=== PATIENT | male | born 1975 | race Caucasian/White ===

== ENCOUNTER 2023-04-02 14:06 | Inpatient (IN) | payer MEDICAID ==
[~2023-04-02] VITALS: Ht 172.7 cm; Wt 106.1 kg
[2023-04-02 14:10] VITALS: BP 103/69; PULSE 98; RESP 22; TEMP 97.4
[2023-04-02] MEDS ORDERED: ONDANSETRON 4 MG/2 ML VIAL IVP ONE (14:25)
[2023-04-02] MEDS ORDERED: NACL 0.9% 1,000 ML IV ONE ×3 (14:25→18:45)
[2023-04-02 14:30] VITALS: O2SAT 98
[2023-04-02 14:45] LABS: BASOPHILS # (AUTO) 0.1 K/uL (0.00-0.22); BASOPHILS % (AUTO) 0.7 % (0.0-2.0); EOSINOPHILS # (AUTO) 0.1 K/uL (0-0.4); EOSINOPHILS % (AUTO) 0.7 % (0.0-4.0); HEMATOCRIT 42.2 % (36-52); HEMOGLOBIN 14.8 g/dL (12.0-18.0); LYMPHOCYTES # (AUTO) 3.9 K/uL (2.0-11.5); LYMPHOCYTES % (AUTO) 39.8 % (20.5-51.1); MEAN CORPUSCULAR HEMOGLOBIN 30 pg (27-31); MEAN CORPUSCULAR HGB CONC 35 g/dL (33-37); MEAN CORPUSCULAR VOLUME 85.2 fL (80-94); MONOCYTES # (AUTO) 0.6 K/uL (0.8-1.0); MONOCYTES % (AUTO) 6.5 % (1.7-9.3); NEUTROPHILS # (AUTO) 5.1 K/uL (1.8-7.7); NEUTROPHILS % (AUTO) 52.3 % (42.2-75.2); PLATELET COUNT (AUTO) 299 K/uL (140-450); RED BLOOD CELL COUNT(AUTO) 4.95 MIL/uL (4.20-6.10); RED CELL DISTRIBUTION WIDTH 14.1 % (11.6-13.7); WHITE BLOOD COUNT (AUTO) 9.9 K/uL (4.8-10.8)
[2023-04-02 15:11] LABS: ALBUMIN 3.9 g/dL (3.4-5.0); ANION GAP 18.8 (8-16); CALCIUM 8.1 mg/dL (8.5-10.1); CARBON DIOXIDE 19.4 mmol/L (21-32); CREATININE 1.1 mg/dL (0.6-1.3); POTASSIUM 3.2 mmol/L (3.5-5.1); TOTAL BILIRUBIN 0.8 mg/dL (0.0-1.0); TOTAL PROTEIN, SERUM 6.9 g/dL (6.4-8.2)
[2023-04-02 15:12] LABS: ACETONE, SERUM NEGATIVE (NEGATIVE)
[2023-04-02 15:25] LABS: ALCOHOL, BLOOD < 3 mg/dL (<10); SALICYLATE < 2.8 mg/dL (2.8-20.0)
[2023-04-02] MEDS ORDERED: INSULIN REGULAR, HUMAN 100 UNIT/ML VIAL IVP ONE (15:50)
[2023-04-02] MEDS ORDERED: KCL 20 MEQ IN 100 mL PREMIX 200 ML IV ONE (15:55)
[2023-04-02 16:45] VITALS: O2SAT 98
[2023-04-02] MEDS ORDERED: POTASSIUM CHLORIDE 20% 40 MEQ/15 ML UDC PO ONE (16:45)
[2023-04-02] MEDS ORDERED: METOCLOPRAMIDE 10 MG/2 ML INJ VIAL IVP ONE (17:20)
[2023-04-02] MEDS ORDERED: diphenhydrAMINE 50 MG/ML VIAL ONE (17:20)
[2023-04-02] MEDS ORDERED: diphenhydrAMINE 50 MG/ML VIAL IVP ONE (17:20)
[2023-04-02] MEDS ORDERED: METOCLOPRAMIDE 10 MG/2 ML INJ VIAL ONE (17:20)
[2023-04-02 20:19] LABS: CALCIUM 7.6 mg/dL (8.5-10.1); CARBON DIOXIDE 21.5 mmol/L (21-32); POTASSIUM 4.5 mmol/L (3.5-5.1)
[2023-04-02] MEDS: INSULIN LISPRO SLIDING SCALE 100 UNITS/ML VIAL SUBQ PRN ×3 (20:22→22:31)
[2023-04-02 21:13] LABS: APPEARANCE,URINE CLEAR (CLEAR); BILIRUBIN,URINE NEGATIVE (NEGATIVE); BLOOD, URINE NEGATIVE (NEGATIVE); COLOR,URINE YELLOW (YELLOW); LEUKOCYTE ESTERASE ,URINE NEGATIVE (NEGATIVE); NITRITE, URINE NEGATIVE (NEGATIVE); PROTEIN,URINE NEGATIVE (NEGATIVE); UGLUCOSE 2+ (NEGATIVE); UROBILINOGEN,URINE 0.2 EU/dL (0.2 - 1)
[2023-04-02 21:24] LABS: AMPHETAMINE, URINE NEGATIVE ng/ml (NEG <=1000); BARBITURATE, URINE NEGATIVE ng/ml (NEG <=200); BENZODIAZEPINE, URINE NEGATIVE ng/mL (NEG <=200); CANNABINOID, URINE POSITIVE ng/mL (NEG <=50); COCAINE, URINE NEGATIVE ng/mL (NEG <=300); OPIATE, URINE NEGATIVE ng/mL (NEG <=2000); PHENCYCLIDINE SCREEN,URINE NEGATIVE ng/mL (NEG <=25)
[2023-04-03] MEDS: INSULIN LISPRO SLIDING SCALE 100 UNITS/ML VIAL SUBQ PRN ×3 (00:09→23:29)
[2023-04-03 00:28] LABS: ANION GAP 13.2 (8-16); CALCIUM 7.7 mg/dL (8.5-10.1); CARBON DIOXIDE 24.7 mmol/L (21-32); CREATININE 0.9 mg/dL (0.6-1.3); POTASSIUM 3.9 mmol/L (3.5-5.1)
[2023-04-03 07:27] LABS: ALBUMIN 3.3 g/dL (3.4-5.0); ANION GAP 11.8 (8-16); CALCIUM 7.9 mg/dL (8.5-10.1); CREATININE 0.9 mg/dL (0.6-1.3); POTASSIUM 3.8 mmol/L (3.5-5.1); TOTAL PROTEIN, SERUM 6.1 g/dL (6.4-8.2)
[2023-04-03] MEDS: INSULIN LISPRO 100 UNITS/ML VIAL SUBQ SCH ×2 (09:00→12:34)
[2023-04-03] MEDS: INSULIN LANTUS 100 UNITS/ML 10 ML VIAL SUBQ SCH ×2 (09:00→12:33)
[2023-04-03 13:07] VITALS: PULSE 67; RESP 17; O2SAT 98
[2023-04-03] MEDS: BLOOD GLUCOSE MONITORING 1 DEV DEV FS SCH ×2 (15:58→23:26)
[2023-04-03 16:27] VITALS: BP 112/68; PULSE 67; RESP 18; TEMP 97; O2SAT 95
[2023-04-03 16:31] VITALS: PULSE 63
[2023-04-03 19:57] VITALS: PULSE 72
[2023-04-03 20:00] VITALS: BP 110/60; PULSE 66; RESP 20; TEMP 98.6; O2SAT 98
[2023-04-04] VITALS: BP 111/63; PULSE 65; RESP 20; TEMP 98.3; O2SAT 97
[2023-04-04 00:06] VITALS: PULSE 66
[2023-04-04 04:00] VITALS: BP 104/60; PULSE 67; PULSE 68; RESP 18; TEMP 98.7; O2SAT 97
[2023-04-04] MEDS: BLOOD GLUCOSE MONITORING 1 DEV DEV FS SCH (07:48)
[2023-04-04 08:00] VITALS: BP 117/73; PULSE 63; PULSE 65; RESP 18; TEMP 97.2; O2SAT 94
[2023-04-04] MEDS: INSULIN LANTUS 100 UNITS/ML 10 ML VIAL SUBQ SCH (08:19)
[2023-04-04] MEDS ORDERED: TRAM50TA3 PO (10:21)
[2023-04-04 11:52] VITALS: BP 117/73; PULSE 63; RESP 18; TEMP 97.2
== END 2023-04-04 15:00 | disposition home or self-care (01) | DRG 425 ==
LOC: MED 14:06 → MTU 18:48
DX: E87.6 Hypokalemia (principal); J96.00 Acute respiratory failure, unspecified whether with hypoxia or hypercapnia; E11.10 Type 2 diabetes mellitus with ketoacidosis without coma; R65.10 Systemic inflammatory response syndrome (SIRS) of non-infectious origin without acute organ dysfunction; E83.51 Hypocalcemia; F12.90 Cannabis use, unspecified, uncomplicated; R55 Syncope and collapse; R07.89 Other chest pain; F32.A Depression, unspecified; Z87.891 Personal history of nicotine dependence
CPT/HCPCS: 36415; 70450; 71045; 80048; 80053; 80305; 81003; 82009; 82803; 82948; 83036; 83880; 84484; 85025; 87081; 93005; 96361; 96374; 96375; 99291; G0480; G0482; J1200; J1815; J2405; J2765; J3480